=== PATIENT | female | born 1945 | race Caucasian/White ===

== ENCOUNTER 2023-08-08 15:01 | Outpatient (CLI) | payer MEDICARE | END 2023-08-08 15:02 | disposition home or self-care (01) | LOC: CSHMAMMO 15:01 | PROVIDERS: ATTEND Family Medicine | DX: Z12.31 Encounter for screening mammogram for malignant neoplasm of breast (principal); M80.00XG Age-related osteoporosis with current pathological fracture, unspecified site, subsequent encounter for fracture with delayed healing; M85.89 Other specified disorders of bone density and structure, multiple sites; S32.029A Unspecified fracture of second lumbar vertebra, initial encounter for closed fracture; Z80.3 Family history of malignant neoplasm of breast | CPT/HCPCS: 77063; 77067; 77080 ==